=== PATIENT | female | born 1985 | race African-American/Black ===

== ENCOUNTER 2024-11-12 10:43 | Emergency (ER) | payer MEDICARE, MEDICAID ==
[~2024-11-12] VITALS: Ht 170.2 cm; Wt 64.0 kg
[2024-11-12 11:22] LABS: BASOPHILS 0.5 % (0.1-1.2); EOSINOPHILS 2.1 % (0.7-5.8); LYMPHOCYTES 30.5 % (19.3-51.7); MCH 30.2 PG (25.6-32.2); MCHC 35.5 g/dL (32.2-35.5); MCV 85.0 fL (79.4-94.8); MONOCYTES 4.6 % (4.7-12.5); NEUTROPHILS 62.2 % (34.0-71.1); RBC 4.41 M/uL (3.93-5.22)
[2024-11-12 11:51] LABS: ALCOHOL, MEDICAL <3 ng/dL (<3); ALT (SGPT) 13 U/L (14-59); AST (SGOT) 13 U/L (15-37); GLOMERULAR FILTRATION RATE,EST 89 mL/min (>60); PROTEIN, TOTAL 7.0 g/dL (6.4-8.2); TSH, 3RD GENERATION 0.775 uIU/mL (0.358-3.740); UREA NITROGEN 5 mg/dL (7-18)
[2024-11-12 13:18] LABS: BLOOD/HGB, URINE NEGATIVE (Negative); KETONE, URINE NEGATIVE (Negative); LEUK ESTERASE, URINE NEGATIVE (negative); NITRITE, URINE NEGATIVE (negative)
[2024-11-12 13:37] LABS: AMPHETAMINES, URINE NEGATIVE (NEGATIVE); BARBITURATES, URINE NEGATIVE (NEGATIVE); BENZODIAZEPINE, URINE NEGATIVE (NEGATIVE); CANNABINOID, URINE POSITIVE (NEGATIVE); COCAINE, URINE NEGATIVE (NEGATIVE); ECSTASY, URINE NEGATIVE (NEGATIVE); FENTANYL, URINE NEGATIVE (NEGATIVE); METHADONE, URINE NEGATIVE (NEGATIVE); OPIATES, URINE NEGATIVE (NEGATIVE); OXYCODONE, URINE NEGATIVE (NEGATIVE); PHENCYCLIDINE, URINE NEGATIVE (NEGATIVE)
[2024-11-12] MEDS ORDERED: OLANZapine 10 MG TAB PO ONE (18:30)
[2024-11-12] MEDS ORDERED: ACETAMINOPHEN 500 MG TAB PO PRN (23:00)
[2024-11-13] MEDS ORDERED: NICOTINE POLACRILEX 4 MG LOZENGE BUCCAL ONE (14:15)
[2024-11-14 08:00] VITALS: BP 97/64
== END 2024-11-14 08:00 ==
LOC: ED 10:43 → EDBD 10:44 → ED 10:44
PROVIDERS: Emergency Medicine
DX: R45.851 Suicidal ideations (principal); F23 Brief psychotic disorder; Z88.5 Allergy status to narcotic agent
CPT/HCPCS: 36415; 80053; 80307; 81003; 84443; 84703; 85025; 99285; A9270; G0480